=== PATIENT | male | born 1945 | race Caucasian/White ===

== ENCOUNTER 2016-07-06 08:53 | Day surgery (SDC) ==
[2016-07-06] MEDS ORDERED: NON-FORMULARY MED SUBQ ONE (09:30)
== END 2016-07-06 10:15 | disposition home or self-care (01) ==
LOC: INF 08:53
PROVIDERS: ATTEND Internal Medicine
DX: C61 Malignant neoplasm of prostate (principal); C79.9 Secondary malignant neoplasm of unspecified site
CPT/HCPCS: 96372

== ENCOUNTER 2016-08-31 10:26 | Day surgery (SDC) ==
[2016-08-31 10:52] VITALS: BP 126/69
[2016-08-31] MEDS ORDERED: NON-FORMULARY MED SUBQ ONE (11:00)
== END 2016-08-31 11:34 | disposition home or self-care (01) ==
LOC: INF 10:26
PROVIDERS: ATTEND Internal Medicine
DX: C61 Malignant neoplasm of prostate (principal); Z79.899 Other long term (current) drug therapy
CPT/HCPCS: 96372